=== PATIENT | male | born 1985 | race Caucasian/White ===

== ENCOUNTER 2018-04-27 02:06 | Emergency (ER) | payer OTHER ==
[~2018-04-27] VITALS: Ht 188 cm; Wt 100.5 kg
[2018-04-27 04:56] LABS: BASO # 0.1 10^3/uL (0.0-0.2); BASO % 0.4 % (0.0-1.0); EOS % 0.3 % (0.0-3.0); HEMATOCRIT 49.4 % (42.0-52.0); HEMOGLOBIN 17.2 g/dl (13.5-17.5); LYMPH # 0.4 10^3/uL (1.5-4.5); MEAN CORPUSCULAR HEMOGLOBIN 29.8 pg (27.0-33.0); MEAN CORPUSCULAR HGB CONC 34.8 g/dl (32.0-36.5); MEAN CORPUSCULAR VOLUME 85.6 fl (80.0-96.0); MONO # 0.6 10^3/uL (0.0-0.8); MONO % 4.7 % (0.0-5.0); NEUTROPHILS # 10.7 10^3/uL (1.8-7.7); PLATELET COUNT, AUTOMATED 274 10^3/uL (150-450); RED BLOOD COUNT 5.77 10^6/uL (4.30-6.10); WHITE BLOOD COUNT 11.8 10^3/uL (4.0-10.0)
[2018-04-27 05:20] LABS: ALBUMIN 4.6 GM/DL (3.2-5.2); ALT/SGPT 52 U/L (12-78); BILIRUBIN,DIRECT 0.2 MG/DL (0.0-0.2); BLOOD UREA NITROGEN 29 MG/DL (7-18); CALCIUM LEVEL 8.9 MG/DL (8.5-10.1); CARBON DIOXIDE LEVEL 27 MEQ/L (21-32); CHLORIDE LEVEL 104 MEQ/L (98-107); CREATININE FOR GFR 1.29 MG/DL (0.70-1.30); GLOMERULAR FILTRATION RATE > 60.0 (>60); GLUCOSE, FASTING 121 MG/DL (70-100); LIPASE 144 U/L (73-393); POTASSIUM SERUM 4.8 MEQ/L (3.5-5.1); SODIUM LEVEL 138 MEQ/L (136-145); TOTAL PROTEIN 8.3 GM/DL (6.4-8.2)
[2018-04-27] MEDS ORDERED: ONDANSETRON 4MG/2ML VIAL (J2405) IV ONE (05:30)
[2018-04-27] MEDS ORDERED: NS 1,000 ML IV ONE (05:30)
[2018-04-27] MEDS ORDERED: ONDA4TAB6 PO (06:57)
[2018-04-27 07:20] VITALS: BP 114/57
== END 2018-04-27 07:20 | disposition home or self-care (01) ==
LOC: M ED 02:06
DX: K52.9 Noninfective gastroenteritis and colitis, unspecified (principal); Z88.0 Allergy status to penicillin
CPT/HCPCS: 80048; 80076; 83690; 85025; 96374; 99284; J2405